=== PATIENT | female | born 1940 | race Caucasian/White ===

== ENCOUNTER → 2016-10-27 | Outpatient (CLI) | payer OTHER, MEDICARE | LOC: BHFA 10:00 | PROVIDERS: ATTEND Internal Medicine Cardiovascular Disease | DX: I34.8 Other nonrheumatic mitral valve disorders (principal) ==

== ENCOUNTER → 2016-11-07 | Outpatient (CLI) | payer OTHER, MEDICARE | LOC: BHFA 10:00 | PROVIDERS: ATTEND Internal Medicine Interventional Cardiology | DX: I48.91 Unspecified atrial fibrillation (principal); I10 Essential (primary) hypertension; Z98.890 Other specified postprocedural states; Z95.0 Presence of cardiac pacemaker ==

== ENCOUNTER → 2017-05-25 | Outpatient (CLI) | payer OTHER, MEDICARE ==
[~2017-05-25] MED LIST: IOPAMIDOL (ISOVUE-M 300) 15 ML VIAL ONE; LIDOCAINE 1% 300 MG/30 ML SDV ONE; ONDANSETRON DISINTEGRATING 4 MG TAB ONE
== END ==
LOC: FIMAGING 08:17
PROVIDERS: ATTEND Neurological Surgery
PROC: 3E0R3KZ Introduction of Other Diagnostic Substance into Spinal Canal, Percutaneous Approach (ICD-10-PCS; principal; 2017-05-25)
DX: M12.88 Other specific arthropathies, not elsewhere classified, other specified site (principal); M50.31 Other cervical disc degeneration, high cervical region; M50.321 Other cervical disc degeneration at C4-C5 level; M50.322 Other cervical disc degeneration at C5-C6 level; M50.323 Other cervical disc degeneration at C6-C7 level; M51.34 Other intervertebral disc degeneration, thoracic region; M43.12 Spondylolisthesis, cervical region; M43.14 Spondylolisthesis, thoracic region; M99.71 Connective tissue and disc stenosis of intervertebral foramina of cervical region; M99.72 Connective tissue and disc stenosis of intervertebral foramina of thoracic region; M48.02 Spinal stenosis, cervical region
CPT/HCPCS: 62302; 72126; 72240; Q9967

== ENCOUNTER → 2017-10-31 | Outpatient (CLI) | payer OTHER, MEDICARE | LOC: BHFA 10:00 | PROVIDERS: ATTEND Internal Medicine Cardiovascular Disease | DX: I10 Essential (primary) hypertension (principal); I05.9 Rheumatic mitral valve disease, unspecified ==

== ENCOUNTER → 2018-04-06 | Outpatient (CLI) | payer OTHER, MEDICARE | LOC: BHFA 15:30 | PROVIDERS: ATTEND Internal Medicine Interventional Cardiology | DX: I48.91 Unspecified atrial fibrillation (principal) ==

== ENCOUNTER 2018-04-07 23:47 | Inpatient (IN) | payer OTHER, MEDICARE ==
--- NOTE | 2018-04-07 23:59 | CPEKG ---
Heart Rate: 161 RR Interval: 373 QRSD Interval: 80 QT Interval: 288 QTC Interval: 472 P [place]: 0 QRS [place]: 54 T Wave [place]: 214 EKG Severity - ABNORMAL ECG - EKG Impression: SUPRAVENTRICULAR TACHYCARDIA EKG Impression: REPOLARIZATION ABNORMALITY, PROB RATE RELATED Electronically Signed By: Henry Hoffman 08-Apr-2018 02:00:40
[2018-04-08] MEDS: DILTIAZEM 25 MG/5 ML VIAL IVP ONE ×2 (00:26→00:49)
--- NOTE | 2018-04-08 00:27 | EDPHY ---
H & P Stated Complaint: c/o Rapid heart rate for 30 min Time Seen by Provider: 04/07/18 23:50 HPI/ROS: CHIEF COMPLAINT: Feels unwell, heart rate fast HISTORY OF PRESENT ILLNESS: This 77-year-old female who is approximately 13 years status post mitral valve replacement was notified by her jet engine mechanic this past Monday that that the evening prior, she had event where she was in a certain rhythm, ? atrial fibrillation and need becoming for checked. This is the 1st time that she has ever had a diagnosis of atrial fibrillation, at least that is what is suspected as she said she had been scheduled for cardioversion on Monday, April 09. April 03 - pacemaker picked up rhythm change April 04 - notified, seen in office, started on Coumadin, Appt for cardioversion on the . EKG performed. April 04,, and maybe = took the coumadin - though she thinks she only tok 3 doses, though started on the . Ever since Monday she has had a sense of the heart rhythm being oz the fast and somewhat irregular. However she is here tonight because she felt unwell. She notes that is not a chest discomfort nor a sense of dread or pallor or diaphoresis or sweating but a sense that something was wrong , but she is unable to further characterize it, though maybe a little short of breath as well, along with a sense of feeling unwell. In the last month she has been under quite a bit of stress as her is ill. However, she has not noted any exercise intolerance or chest discomfort or shoulder discomfort or arm discomfort her shortness of breath REVIEW OF SYSTEMS: Constitutional: No fever, no chills. Eyes: No discharge ENT: No sore throat. Cardiovascular: No chest pain, no palpitations. Respiratory: No cough, shortness of breath, or wheezing. Gastrointestinal: No nausea vomiting or diarrhea. No abdominal pain. Genitourinary: No hematuria or frequency. Musculoskeletal: No back pain. Skin: No rashes. Neurological: No headache. 10 point ROS otherwise negative Source: Patient Exam Limitations: No limitations - Personal History Tetanus Vaccine Date: WITHIN 10 YRS - Medical/Surgical History Hx Asthma: Yes Hx Chronic Respiratory Disease: No Hx Diabetes: No Hx Cardiac Disease: Yes Hx Renal Disease: No Hx Cirrhosis: No Hx Alcoholism: No Hx HIV/AIDS: No Hx Splenectomy or Spleen Trauma: No Other PMH: PACEMAKER (09/2014), 'MIGRAINES, MVR 2004, MAZE AND ATRIAL AT SAME SURGERY, ASTHMA, Left subclavian blood clot, (09/2014) - Family History Significant Family History: No pertinent family hx - Social History Smoking Status: Never smoked Alcohol Use: None Drug Use: None - Physical Exam Exam: General Appearance: Alert, no distress. Afebrile. Normal phonation. No respiratory distress. Good color, no pallor, no diaphoresis. Eyes: Pupils equal and round no pallor or injection. No icterus ENT, Mouth: Mucous membranes moist Pharynx without erythema or exudate. TM Clear. Neck: No adenopathy. Supple. No JVD. Trachea in midline. Respiratory: There are no retractions, lungs are clear to auscultation. Chest wall: Nontender to palpation. No crepitus. Cardiovascular: Regular rate and rhythm. No murmur. Abdomen: Soft and nontender, no masses, bowel sounds normal. Neurological: Ox3. No motor weakness. Sensation intact. Gait nl. Skin: Warm and dry, no rashes. Musculoskeletal: No joint swelling. Extremities: No edema. Homans sign negative. No cords. Psychiatric: Normal affect. Patient is oriented X 3. There is no agitation Constitutional: Initial Vital Signs Temperature (C) 36.6 C 04/07/18 23:52 Heart Rate 160 H 04/07/18 23:52 Respiratory Rate 20 04/07/18 23:52 Blood Pressure 140/109 H 04/07/18 23:52 O2 Sat (%) 94 04/07/18 23:52 O2 Delivery Mode Nasal Cannula O2 (L/minute) 2 Allergies/Adverse Reactions: codeine Allergy (Intermediate, Verified 05/22/17 10:34) Vomiting lorazepam [From Ativan] Allergy (Intermediate, Verified 05/22/17 10:34) Other-Enter Comments albuterol [Albuterol] Allergy (Unknown, Verified 05/22/17 10:34) Unknown morphine [Morphine] Allergy (Unknown, Verified 05/22/17 10:34) Vomiting ALL NARCOTICS Allergy (Intermediate, Uncoded 05/22/17 10:34) Home Medications: Medication Instructions Recorded Acet/Caffeine/Buta Fioricet 1 each PO DAILY PRN 09/29/14 [Fioricet (*)] Ascorbic Acid [Vitamin C 500 mg 1,000 mg PO DAILY 09/29/14 (*)] Aspirin [Aspirin 81mg (*)] 325 mg PO DAILY 09/29/14 Beclomethasone Qvar 40 [Qvar 40] 1 puffs IH BID 09/29/14 Cholecalciferol Vit D3 [Vitamin D3 1,000 units PO DAILY 09/29/14 (*)] Digoxin [Lanoxin 0.125 mg] 0.125 mg PO DAILY@1500 09/29/14 Diltiazem HCl [Diltiazem 24Hr ER] 240 mg PO DAILY 09/29/14 Fish Oil/Dha/Epa [Fish Oil 1,200 1 each PO DAILY 09/29/14 mg Fish Oil] Garlic 580 mg PO DAILY 09/29/14 Meclizine HCl [Meclizine HCl 25 mg 12.5 mg PO DAILY PRN 09/29/14 (RX,OTC)] Multivitamins [Multivitamin (*)] 1 each PO DAILY 09/29/14 Ondansetron Odt [Zofran Odt 4 mg 4 mg PO DAILY PRN 09/29/14 (*)] Sertraline HCl [Zoloft 25mg (*)] 25 mg PO Q2D 09/29/14 Ubidecarenone/Vit E Acet [Co Q-10 1 each PO DAILY 09/29/14 100 mg Softgel] Medical Decision Making - Diagnostics EKG Interpretation: EKG 1. Interpreted by me contemporaneously. This is supraventricular tachycardia, with a heart rate approaching 150-160. Mild nonspecific ST changes. EKG 2. Atrial fibrillation with occasional paced beats. Diffuse ST segment changes interpreted by me contemporaneously Imaging Results: Chest x-ray: Two view chest. Interpreted by [me, contemporaneously]. Films [viewed] by me on the PACS system. Enlarged cardiac silhouette. Normal lung martinez. No effusions, nor CHF. Mild cardiomegaly. Imaging: I viewed and interpreted images myself ED Course/Re-evaluation: EKG on arrival showed supraventricular tachycardia at a rate of approximately 160. No clear irregularity noted. Unable to access the EKG from this past . As she was scheduled for the cardioversion on Monday, 36 hr from now we discussed possibly doing a cardioversion now. However that seemed a little dog 10 to her thus we went ahead with rate control as follows: Her blood pressure is 160 systolic thus she was given a loading dose of 15 milligrams, over 2 min. While this did work, and her heart rate was in the 80s , it also causes some hypotension with a blood pressure of 90. Thus she was given a saline bolus and laid flat and her blood pressure responded nicely, to the 130 range As such she was given a 10 cc of calcium gluconate and started on the drip at 5 milligrams/minute. By then, her heart rate was up to 120. A 2nd EKG was performed shortly after the initial IV bolus. This should demonstrates atrial fibrillation with Yaw normal response rate with occasional paced beats. On the drip at 5 milligrams/minute [place] [id number] range thus and other bolus was given of 7 mg IV over 2 min Chest x-ray performed. While the cardiac silhouette is enlarged, the lung martinez are clear. No signs of failure. No pneumothorax. See interpretation by me. Laboratory evaluation include the following: Normal H&H Normal electrolytes PT INR pending - as she has just started Coumadin and the INR is pending I will forego adding any Lovenox at this time Case was discussed with Dr. Neves of the hospitalist service and the patient admitted to the PCU as an observation status, via ALS transfer. Differential Diagnosis: Differential diagnosis includes but is not limited to the following: Atrial fibrillation, ACS, myocardial infarction, pulmonary embolus, CHF, Pneumonia, bronchospasm, Asthma, anxiety, muscle strain, anemia, sepsis. Critical Care Time: I spent a total of [70] minutes of critical care time in obtaining history, performing a physical exam, bedside monitoring of interventions, collecting and interpreting tests and discussion with consultants but not including time spent performing procedures. - Data Points Laboratory Results: 04/08/18 04/08/18 04/08/18 00:50 00:43 00:00 POC Hgb 13.9 gm/dL gm/dL (12.6-16.3) POC Hct 41 % % (38-47) PT 18.1 SEC H SEC (12.0-15.0) INR 1.48 H (0.83-1.16) POC Sodium 140 mEq/L mEq/L 141 mEq/L mEq/L (135-145) (135-145) POC Potassium 3.8 mEq/L mEq/L 3.7 mEq/L mEq/L (3.3-5.0) (3.3-5.0) POC Chloride 107 mEq/L mEq/L 107.0 mEq/L mEq/L (97-110) (97-110) POC Total CO2 22 mEq/L mEq/L (22-31) POC BUN 23 mg/dL mg/dL 19 mg/dL mg/dL (7-23) (7-23) POC Creatinine 0.8 mg/dL mg/dL 0.9 mg/dL mg/dL (0.6-1.0) (0.6-1.0) POC Glucose 106 mg/dL H mg/dL 105 mg/dL H mg/dL (70-100) (70-100) POC Calcium 9.8 mg/dL mg/dL (8.5-10.4) Medications Given: Discontinued Medications Diltiazem HCl (Cardizem 25 Mg/5 Ml Vial) 10 mg IVP EDNOW ONE Stop: 04/08/18 00:06 Last Admin: 04/08/18 00:49 Dose: 10 mg Diltiazem HCl (Cardizem 25 Mg/5 Ml Vial) 7 mg IVP EDNOW ONE Stop: 04/08/18 01:12 Last Admin: 04/08/18 01:35 Dose: 7 mg Calcium Gluconate (Calcium Gluconate 1 Gm (Premix)) 50 mls @ 100 mls/hr IV ONCE ONE Stop: 04/08/18 00:57 Last Admin: 04/08/18 00:47 Dose: 50 mls Diltiazem HCl 125 mg/ Sodium (Chloride) 125 mls @ 0 mls/hr IV EDNOW ONE; Titrate PRN Reason: Protocol Stop: 04/08/18 00:31 Last Admin: 04/08/18 00:51 Dose: 125 mls Point of Care Test Results: Chemistry 04/08/18 04/08/18 00:50 00:43 POC Sodium 140 mEq/L mEq/L 141 mEq/L mEq/L (135-145) (135-145) POC Potassium 3.8 mEq/L mEq/L 3.7 mEq/L mEq/L (3.3-5.0) (3.3-5.0) POC Chloride 107 mEq/L mEq/L 107.0 mEq/L mEq/L (97-110) (97-110) POC Total CO2 22 mEq/L mEq/L (22-31) POC BUN 23 mg/dL mg/dL 19 mg/dL mg/dL (7-23) (7-23) POC Creatinine 0.8 mg/dL mg/dL 0.9 mg/dL mg/dL (0.6-1.0) (0.6-1.0) POC Glucose 106 mg/dL H mg/dL 105 mg/dL H mg/dL (70-100) (70-100) POC Calcium 9.8 mg/dL mg/dL (8.5-10.4) ISTAT H&H 04/08/18 00:50 POC Hgb 13.9 gm/dL gm/dL (12.6-16.3) POC Hct 41 % % (38-47) Departure - Departure Disposition: [facility] Inpatient Acute Clinical Impression: Fast Ventricular Response Atrial fibrillation Qualifiers: Atrial fibrillation type: unspecified Qualified Code(s): I48.91 - Unspecified atrial fibrillation Condition: Good
[2018-04-08] MEDS ORDERED: CALCIUM GLUCONATE 50 ML IV ONE (00:28)
[2018-04-08] MEDS ORDERED: DILTIAZEM 125 MG in NS 100 ML IV ONE (00:30)
[2018-04-08] MEDS ORDERED: DILTIAZEM 25 MG/5 ML VIAL IVP ONE (01:11)
[2018-04-08] MEDS ORDERED: NS 1,000 ML IV ONE (01:30)
[2018-04-08 01:37] LABS: INR 1.48 (0.83-1.16); PROTIME(PATIENT) 18.1 SEC (12.0-15.0)
[2018-04-08] MEDS ORDERED: ONDANSETRON 4 MG/2 ML VIAL IVP PRN (02:11)
[2018-04-08] MEDS ORDERED: NS 1,000 ML IV SCH (02:15)
[2018-04-08] MEDS ORDERED: DILTIAZEM 125 MG in D5W 125 ML IV SCH (03:15)
--- NOTE | 2018-04-08 05:18 | GHP ---
[f rep st] HISTORY AND PHYSICAL DATE OF ADMISSION: 04/08/2018 SOURCE: Patient provides history, appears reliable. EMR was reviewed and case discussed with ED provider. CHIEF COMPLAINT: Palpitations, fatigue. HISTORY OF PRESENT ILLNESS: This is a very pleasant 77-year-old female with past medical history significant for mitral valve replacement, history of pacer , asthma, migraine headaches, remote history of DVT status post pacer placement , who presents to the emergency department today with complaints of palpitations and fatigue. Patient was notified last week by Dr. Akins that her pacer had notified them that the patient had gone into atrial fibrillation. She, subsequently, had a followup with them. Was placed on Coumadin and has taken several doses of this. Additionally, patient is scheduled to have a cardioversion on Monday. She reports that this evening she developed increasing palpitations and fatigue. She denies any lower extremity edema. No dyspnea. No lightheadedness more than her baseline associated with headaches. She denies any focal deficits, numbness, tingling, or visual changes. The patient denies any nausea, vomiting, abdominal pain. No fevers, chills, or sweats. Patient otherwise without any other additional complaints. The patient reports that she has been under an immense amount of stress at home. Her , unfortunately, has been dealing with a glioblastoma and has not been doing well. REVIEW OF SYSTEMS: Negative except as noted above. ALLERGIES: To all narcotics and lorazepam. Patient reports that she developed significant and sudden GI upset. HOME MEDICATIONS: As per EMR. Co-Q10 one tab p.o. daily, sertraline 25 mg p.o. every other day, Zofran ODT 4 mg p.o. daily p.r.n., multivitamin 1 tab p.o. daily, meclizine 12.5 mg p.o. daily p.r.n., garlic 580 mg p.o. daily, fish oil 1200 mg p.o. daily, Diltiazem 24-hour ER 240 mg p.o. daily, digoxin 0.125 mg p.o. daily at 1500. Vitamin D3 at 1000 units p.o. daily. Qvar 1 puff inhaled b.i.d., aspirin 325 mg p.o. daily, vitamin C 1000 mg p.o. daily, and Fioricet 1 tab p.o. daily p.r.n. PAST MEDICAL HISTORY: Significant for mitral valve replacement pacer 10/04/2014 , asthma, migraine headaches, and left subclavian DVT in 09/2014 after pacer placement. PAST SURGICAL HISTORY: Significant for pacer and bilateral cataract extraction with lens placement. FAMILY HISTORY: Mother with history of pacer and heart problems. Brother with mitral valve replacement. Father with history of congestive heart failure. SOCIAL HISTORY: Patient denies any tobacco or drugs. She does drink a glass of wine on a weekly basis. She lives with her . COR STATUS: Full. PHYSICAL EXAMINATION: VITAL SIGNS: Upon arrival to the ED at [facility], blood pressure 140/109, heart rate 160, respiratory rate 20, O2 saturation 94% on room air with temperature 36.6. Current vitals: Blood pressure 127/85, heart rate 112, respiratory rate 20, O2 sat is 100% on 2 L by nasal cannula. GENERAL: No acute distress. Very pleasant, elderly appearing female who is lying quietly in bed. Her daughter is at bedside. HEAD: Normocephalic, atraumatic. EYES: Extraocular muscles are intact. Pupils equal , round, react to light bilaterally and symmetric. No scleral icterus or conjunctival injection. Lens reflex appreciated bilaterally. ENT: Mucous membranes appear slightly dry. No oropharyngeal erythema or exudates. No nasal discharge. NECK: Supple, trachea midline. CARDIOVASCULAR: Tachycardic with irregularly irregular rhythm. No murmurs, rubs, or gallops appreciated, but limited secondary to tachycardia. No chest wall tenderness to palpation. RESPIRATORY: Lungs are clear to auscultation bilaterally. No wheezes, rales, or rhonchi. Unlabored breathing. ABDOMEN: Positive bowel sounds. Soft, nontender to palpation. No rebound, guarding, or masses appreciated. : No suprapubic tenderness to palpation. No Vieira catheter in place. MUSCULOSKELETAL: Generalized deconditioning, weakness, otherwise moves all extremities while lying in bed. NEUROLOGIC: Grossly nonfocal. No facial drooping. Moves all extremities. PSYCHIATRIC: Patient does appear just slightly anxious, but she is very pleasant and cooperative. DATA REVIEWED: Laboratory studies: Point of care H and H is 13.9 and 41, PT is 18.1 and 1.48. Point of care sodium is 140, potassium 3.8, chloride is 107, CO2 is 22, BUN 23, creatinine is 0.8, glucose is 106. EKG reviewed myself showing initially supraventricular tachycardia in the 160s. No acute ST changes. Some slight ST depressions in the lateral leads. Could be rate related. QTc is 472. Repeated EKG I am not able to obtain but with telemetry monitoring shows AFib with a rate in the 110s. No acute ST changes present. Chest x-ray: Image reviewed myself, report is still pending. The patient with a biventricular pacer, right perihilar vascular prominence. Lungs otherwise clear. ASSESSMENT AND PLAN: A very pleasant 77-year-old female with history of mitral valve replacement, pacer placement, who presents to the emergency department with palpitations. 1. Atrial fibrillation with rapid ventricular response. The patient received a dose of Cardizem in the emergency department before transfer. The bolus dose did slow her heart rate but also dropped her blood pressure slightly to below 100 systolically. She was subsequently placed on a diltiazem drip, and her heart rate overall has decreased down from 160s to 110s. We will plan to continue on the Cardizem drip at this time. Cardiology can be consulted in the morning. Patient is scheduled as outpatient for a cardioversion. We will request Cardiology evaluation recommendations. The patient has been taking Coumadin. Her INR is subtherapeutic at this time. Given the patient has been on the Coumadin for several days we will plan to repeat PT/INR and Lovenox bridge. The patient is followed closely by Dr. Akins. I am unable to assess if recent echo has been ordered, so will hold off until we can ascertain additional need for echo. 2. Other medical issues, history of mitral valve replacement. 3. Pacer. 4. History of asthma without exacerbation. 5. History of migraine headaches, currently controlled. 6. Remote history of deep vein thrombosis on Coumadin already. Consider bridging tomorrow and at discharge. 7. Fluid, electrolyte, nutrition: IV fluids present. Gentle IV fluid hydration, electrolyte monitoring replacement if needed. The patient will be n.p.o. pending Cardiology evaluation. 8. Prophylaxis: Sequential compression devices, holding anticoagulation until reassessment and PT/INR tomorrow. Consideration for therapeutic dosing. 9. COR status is full. 10. Disposition: The patient admitted to observation status on the Pulmonary Care Unit floor pending further recommendations from Cardiology and followup assessments with Cardizem drip and consideration for cardioversion. /[id number]/MODL MTDD
[2018-04-08 08:13] LABS: PLATELET COUNT 216 10^3/uL (150-400)
[2018-04-08 08:19] LABS: INR 1.66 (0.83-1.16); PROTIME(PATIENT) 19.7 SEC (12.0-15.0)
[2018-04-08] MEDS ORDERED: ONDANSETRON DISINTEGRATING 4 MG TAB PO PRN (08:46)
[2018-04-08] MEDS ORDERED: MECLIZINE HCL 25 MG TAB PO PRN (08:46)
[2018-04-08] MEDS ORDERED: ACET/CAFFEINE/BUTA FIORICET 1 EACH TAB PO PRN (08:46)
[2018-04-08] MEDS: ACETAMINOPHEN 325 MG TAB PO PRN ×2 (10:06→19:24)
[2018-04-08] MEDS: CHOLECALCIFEROL VIT D3 1,000 UNITS TAB PO SCH (10:07)
[2018-04-08] MEDS: OMEGA-3 FATTY ACIDS 1,000 MG CAP PO SCH (10:07)
[2018-04-08] MEDS: ASCORBIC ACID 500 MG TAB PO SCH (10:07)
[2018-04-08] MEDS: MULTIVITAMINS 1 EACH TAB PO SCH (10:07)
--- NOTE | 2018-04-08 10:09 | ASMTCMCOM ---
CM Note CM Note Notes: 04/08/2018 Case Management Note Met w/pt. ALMAZ signed. Pt admitted for treatment of atrial fibrillation with fast ventricular response. Pt Sergio is currently living at [facility] in [facility]. Sergio is followed by [facility] hospice d/t a progressing brain tumor. Pt has 2 children. Daughter Sydney [phone] lives locally. Son Alfredo [phone] lives in [place]. Pt friend Quita Hannon [phone] was present. Pt lives independently. She is able to drive and has no difficulty preparing meals. She attends a support group through [facility] hospice. Pt reports that she is scheduled for a HAWA and cardioversion tomorrow. Case Management d/c poc: independent Case Management available if needs change. Date Signed: 04/08/2018 10:08 AM Electronically Signed By:Nahomi Lemons RN
[2018-04-08] MEDS ORDERED: ADENOSINE 6 MG/2 ML VIAL ONE (11:27)
[2018-04-08] MEDS: METOPROLOL TARTRATE 25 MG TAB PO SCH ×2 (13:25→20:19)
--- NOTE | 2018-04-08 13:29 | GCON ---
[f rep st] CONSULTATION DATE OF CONSULTATION: 04/08/2018 REFERRING PHYSICIAN: Jyoti Neves MD REASON FOR CONSULTATION: We have been asked by Dr. Neves to evaluate the patient with tachycardia. HISTORY OF PRESENT ILLNESS: The patient is a 77-year-old female with history of mitral valve repair and Maze procedure who presents with a chief complaint of palpitations. Patient was in her usual sta te of health until 04/04/2018, when she was noted to have atrial fibrillation on pacemaker monitoring . She was started on anticoagulation and scheduled for a HAWA cardioversion on 04/09/2018. On 2017, patient noted the onset of palpitations described as a rapid heartbeat. The palpitations were not associated with symptoms of syncope or presyncope. The palpitations were somewhat bothersome pro mpting her to seek further evaluation. She presented to the emergency department, where she had an E KG performed demonstrating a narrow complex tachycardia at 161 beats per minute. The tachycardia was suggestive of a supraventricular tachycardia versus a fast flutter. Patient was admitted to the [facility] and started on diltiazem drip. We were consulted to help in the further management of this pat ient. The patient has been under a significant amount of stress at home, secondary to her 's diagnos is of glioblastoma. Patient does have a history of mitral valve repair in 2004. Her most recent ech ocardiogram in October of 2017, demonstrated normal left ventricular size and systolic function with moderate mitral regurgitation and a pulmonary artery pressure 39 mmHg. This was not significantly ch anged from previous. The patient also has a history of atrial fibrillation, is status post Maze proc [facility]. Post-Maze procedure in 2008, patient did have atrial tachycardia. She was started on diltiaz em and digoxin for her rhythm management. PAST MEDICAL HISTORY: 1. Status post mitral valve repair in 2004. 2. Atrial fibrillation, status post maze procedure in 2004. 3. Atrial tachycardia managed with diltiazem and digoxin. 4. History of DVT. 5. Migraine headaches. MEDICATIONS: Please see medicine reconciliation form. ALLERGIES: Codeine, lorazepam, albuterol, and morphine. SOCIAL HISTORY: The patient has been under a fair amount of stress with her 's recent diagnos is of glioblastoma. Patient's is in the process of being transition from one assisted facili ty to a second assisted facility on the day after admission. The patient does not smoke. She consum es approximately 1 small glass of wine per week. FAMILY HISTORY: Noncontributory. REVIEW OF SYSTEMS: 10-point review of systems is negative, except as noted in HPI. PHYSICAL EXAMINATION: GENERAL: The patient is resting comfortably in bed. She does not appear to b e in acute distress. VITAL SIGNS: Temperature is afebrile. Pulse is 131, blood pressure 124/76, re spiratory rate is 20, SaO2 is 97% on 2 L nasal cannula. HEENT: Normocephalic atraumatic. Extraocul ar muscles intact. NECK: No JVD. No bruits. LUNGS: Clear to auscultation bilaterally. CARDIOVAS CULAR: Tachycardia, regular rhythm. S1, S2. A grade 2/6 holosystolic murmur is noted at the left s ternal border. ABDOMEN: Soft, nontender. Normoactive bowel sounds. No hepatosplenomegaly noted. Aorta could not be adequately palpated. SKIN: No evidence of rashes. EXTREMITIES: No lower extrem ity edema. No clubbing or cyanosis. NEURO: Patient is awake, alert, and oriented x3. LABORATORY/IMAGING: White blood cell count is 4.65, hemoglobin is 13.9, hematocrit is 40.9, platelet count is 216. INR is 1.66. Sodium 141, potassium 3.9, chloride 110, CO2 21, BUN 14, creatinine 0.7 . TSH 2.38. Digoxin level is pending at this time. EKG demonstrates a narrow complex tachycardia at 161 beats per minute suggestive of atrial tachycardi a versus atrial flutter with 2-1 conduction. Maneuvers: The patient was treated with vagal maneuvers as well as carotid sinus massage with tempor max breaking of her rhythm. The rhythm is suggestive of an atrial tachycardia. ASSESSMENT/PLAN: The patient is a 77-year-old female with return: 1. Palpitations. Patient was diagnosed with atrial fibrillation by pacemaker check on 04/07/2018. She was relatively asymptomatic with respect to her palpitations at that time; however the evening pr ior to admission, patient did note an onset of a rapid heart rate prompting her to seek further evalu ation. EKG is suggestive of an atrial tachycardia at approximately 161 beats per minute. Her rate h as decreased to 130 beats per minute with intravenous diltiazem. Will plan on adding metoprolol 12.5 mg b.i.d. to her regimen and plans for HAWA cardioversion in the a.m. if she does not convert. 2. Mitral valve repair. Patient is status post mitral valve repair in 2004. Her last echocardiogra m in October of 2017, demonstrated stable moderate mitral regurgitation with normal left ventricular size and systolic function. We will plan on evaluating the mitral valve at time of transesophageal e chocardiogram. /[id number]/MODL
[2018-04-08] MEDS: DIGOXIN 125 MCG TAB PO SCH (15:09)
--- NOTE | 2018-04-08 17:29 | HOSPPROG ---
Hospitalist Progress Note Assessment/Plan: Prolonged service and direct patient care in addition to the time spent originally on the history and physical by Dr. Jyoti Neves, [id number] with patient and her friend, at bedside, from 1:20 until 1:50 p.m., 30 min, addressing the following: -physical exam demonstrates tachycardia, irregularly irregular rhythm, no lower extremity edema, lung sounds are clear to auscultation bilaterally, abdomen is soft, non distended, alert awake oriented x3, no apparent distress, pain level 0 /10 -original EKG reviewed which demonstrates supraventricular tachycardia with T- wave inversion in lead 3, ST depression in lead 2 and laterally, current telemetry demonstrates an atrial fibrillation rhythm with a heart rate approximately 120 beats per minute -discussed with patient the current impression which has been discussed with Dr. Bud Shukla, and that is that the patient was most likely symptomatic from atrial tachycardia or supraventricular tachycardia, which was producing a rate around 160, and has responded to adenosine as well as a diltiazem drip -I recommended strategy is to administer oral metoprolol as her prefer master blocking agent, monitor for chemical cardioversion on telemetry, and if the patient does not chemically cardiovert over the next 24 hr, we will DC cardiovert her in a.m. -her beta-deonna dosage can be subsequently up titrated, as the patient has a permanent pacemaker to ensure that she does not experience subsequent pathologic bradycardia -the patient will remain on a Lovenox bridge given that the plan is for chemical or DC cardioversion, holding tomorrow morning's Lovenox dosage prior to the potential procedure, and monitoring her INR as she continues to receive Coumadin -the patient is currently chest pain-free, and we have counseled the patient that this is most likely because the rhythm producing her symptoms was either SVT or ATach, and her background atrial fibrillation is likely not the culprit of her presenting symptoms Objective: Vital Signs Temp Pulse Resp BP Pulse Ox 36.9 C 104 H 17 120/77 99 04/08/18 16:00 04/08/18 16:00 04/08/18 16:00 04/08/18 16:00 04/08/18 16:00 04/07/18 04/08/18 04/09/18 05:59 05:59 05:59 Intake Total 700 Output Total 725 Balance -25 PT 19.7 SEC (12.0-15.0) H 04/08/18 07:55 INR 1.66 (0.83-1.16) H 04/08/18 07:55 ICD10 Worksheet Patient Problems: Problems Problem Status Onset Fatigue Acute Pacemaker Acute Atrial fibrillation Acute
[2018-04-08] MEDS: WARFARIN SODIUM 5 MG TAB PO SCH (17:55)
--- NOTE | 2018-04-08 18:32 | PDMN ---
Medical Necessity Medical necessity: Change to IP, as of 04/08/18 per MD; los >2 mn for ongoing management of symptomatic atrial tachycardia/SVT; requiring further cardiac monitoring, med management, IV Diltiazem, Cardiology consult & possible HAWA cardioversion; hx MVR, AFIB on AC, pacer, DVT; per progress note & order 04/08/18
[2018-04-08] MEDS ORDERED: diphenhydrAMINE 25 MG CAP PO PRN (20:27)
[2018-04-08] MEDS ORDERED: DILTIAZEM HCL/D5W 125 ML IV SCH (20:30)
[2018-04-08] MEDS ORDERED: SERTRALINE HCL 25 MG TAB PO SCH (21:00)
[2018-04-08] MEDS ORDERED: ENOXAPARIN 60 MG/0.6 ML SYR SC SCH (21:00)
[2018-04-08] MEDS ORDERED: METOPROLOL TARTRATE 25 MG TAB PO SCH (21:00)
[2018-04-09 04:24] LABS: INR 1.78 (0.83-1.16); PROTIME(PATIENT) 20.8 SEC (12.0-15.0)
[2018-04-09] MEDS: METOPROLOL TARTRATE 25 MG TAB PO SCH (08:19)
--- NOTE | 2018-04-09 10:14 | PDHPUP ---
History & Physical Update H&P update statement: This history and physical update is based on an assessment of the patient which was completed after admission or registration (within 24 hours), but prior to the surgery/procedure. H&P update: H&P reviewed & patient examined, no change in patient's condition since H&P completed
[2018-04-09] MEDS ORDERED: ENOXAPARIN 60 MG/0.6 ML SYR SC ONE (10:30)
[2018-04-09] MEDS ORDERED: LIDOCAINE 2% 5 ML SDV ONE (11:12)
[2018-04-09] MEDS ORDERED: PROPOFOL/EMULSION 500 MG/50 ML BOTTLE IV ONE (11:12)
[2018-04-09] MEDS ORDERED: ATROPINE SULFATE 1 MG/10 ML SYR IVP ONE (11:13)
[2018-04-09] MEDS ORDERED: NS 500 ML IV ONE (11:13)
[2018-04-09] MEDS ORDERED: fentaNYL 100 MCG/2 ML INJ ONE (11:13)
[2018-04-09] MEDS ORDERED: fentaNYL 100 MCG/2 ML INJ IVP ONE (11:13)
[2018-04-09] MEDS ORDERED: MIDAZOLAM 2 MG/2 ML VIAL IVP ONE (11:13)
[2018-04-09] MEDS ORDERED: BENZOCAINE UNIT DOSE SPRAY HURRICAINE MM ONE (11:13)
--- NOTE | 2018-04-09 11:23 | PDANEPAE ---
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 JUSTINE Patient History - Allergies Allergies/Adverse Reactions: codeine Allergy (Intermediate, Verified 05/22/17 10:34) Vomiting lorazepam [From Ativan] Allergy (Intermediate, Verified 05/22/17 10:34) Other-Enter Comments albuterol [Albuterol] Allergy (Unknown, Verified 05/22/17 10:34) Unknown morphine [Morphine] Allergy (Unknown, Verified 05/22/17 10:34) Vomiting ALL NARCOTICS Allergy (Intermediate, Uncoded 05/22/17 10:34) - Home Medications Home Medications: Acet/Caffeine/Buta Fioricet [Fioricet (*)] 1 each PO DAILY PRN 09/29/14 [Last Taken Unknown] Ascorbic Acid [Vitamin C 500 mg (*)] 1,000 mg PO DAILY 09/29/14 [Last Taken 05/01] Cholecalciferol Vit D3 [Vitamin D3 (*)] 1,000 units PO DAILY 09/29/14 [Last Taken 05/22/17] Digoxin [Lanoxin 0.125 mg] 0.125 mg PO DAILY@1500 09/29/14 [Last Taken 04/07/18] Fish Oil/Dha/Epa [Fish Oil 1,200 mg Fish Oil] 1 each PO DAILY 09/29/14 [Last Taken 05/22/17] Meclizine HCl [Meclizine HCl 25 mg (RX,OTC)] 12.5 mg PO DAILY PRN 09/29/14 [ Last Taken Unknown] Multivitamins [Multivitamin (*)] 1 each PO DAILY 09/29/14 [Last Taken 05/22/17] Ondansetron Odt [Zofran Odt 4 mg (*)] 4 mg PO DAILY PRN 09/29/14 [Last Taken Unknown] Sertraline HCl [Zoloft 25mg (*)] 25 mg PO HS 09/29/14 [Last Taken 04/07/18] Diltiazem HCl [Diltiazem ER] 120 mg PO DAILY 04/08/18 [Last Taken Unknown] Warfarin Sodium [Coumadin 5MG (*)] 5 mg PO DAILY16 04/08/18 [Last Taken 04/07/18 ] - Smoking Hx Smoking Status: Never smoked - Alcohol Use Alcohol Use: None ANE Labs/Vital Signs - Labs Result Diagrams: 04/08/18 07:55 04/08/18 07:55 - Vital Signs Blood Pressure: 122/75 Heart Rate: 129 Respiratory Rate: 14 O2 Sat (%): 92 Height: 165.1 cm Weight: 62.7 kg ANE Physical Exam - Airway Neck exam: FROM Mallampati Score: Class 2 Mouth exam: normal dental/mouth exam - Pulmonary Pulmonary: no respiratory distress - Cardiovascular Cardiovascular: regular rate and rhythym - ASA Status ASA Status: III ANE Anesthesia Plan Total IV Anesthesia: Yes
--- NOTE | 2018-04-09 11:48 | PDTEE1 ---
HAWA Cardioversion Procedure Procedure: electrical cardioversion, transesophageal echo Indications: atrial fibrillation Consent: signed and in chart Anticoagulation: warfarin Procedural Details: Pads were placed in anterior-posterior position. HAWA probe was advanced and standard images obtained. There is no evidence of left atrial or left atrial appendage thrombus. Synchronized cardioversion attempt #1: 200J Results: normal sinus rhythm Conclusions: successful HAWA cardioversion (Maybe discharged home with bridging lovenox till theraputic INR acheived.) Patient Problems: Problems Problem Status Onset Fatigue Acute Pacemaker Acute Atrial fibrillation Acute
[2018-04-09] MEDS ORDERED: NALOXONE HCL 0.4 MG/ML INJ IVP PRN (12:25)
--- NOTE | 2018-04-09 12:25 | POSTANESTH ---
Post Anesthetic Evaluation Cardiovascular Status: Normal, Stable Respiratory Status: Similar to Pre-op Cond. Level of Consciousness/Mental Status: Can Participate in Eval Pain Control: Adequate, Prn Tx Ordered Nausea/Vomiting Control: Adequate, Prn Tx Ordered Complications Possibly Related to Anesthesia: None Noted
--- NOTE | 2018-04-09 12:57 | CPEKG ---
Heart Rate: 71 RR Interval: 845 P-R Interval: 200 QRSD Interval: 80 QT Interval: 396 QTC Interval: 431 QRS [place]: 51 T Wave [place]: 235 EKG Severity - ABNORMAL ECG - EKG Impression: ATRIAL PACING HAS REPLACED SVT NOTED ON PRIOR ECG EKG Impression: ATRIAL-PACED RHYTHM Electronically Signed By: Bud Lux 11-Apr-2018 07:26:12
[2018-04-09] MEDS: ACETAMINOPHEN 325 MG TAB PO PRN (13:00)
--- NOTE | 2018-04-09 13:25 | ECHO ---
[email or web address] [place] [id number] Main: [phone] Fax: Transesophageal Echocardiography Name: TOMASA LUQUE MR#: [id number] Study Date: 04/09/2018 Study Time: 11:34 AM Date of : 1940 Age: 77 year(s) Height: ( ) Weight: ( ) BSA: Gender: Female Examination: HAWA Indication: Pre Cardioversion Image Quality: Contrast: Requested by: Jyoti Neves Heart Rate: Rhythm: BP: / Procedure Staff Nutrition Director: Mayito Rosario RDCS Reading Physician: Kristopher Miller MD Requesting Provider: HAWA Exam Details Conclusions: No pericardial effusion. Left atrial appendage appears to be oversewn. There is no evidence of thrombus. Intact mitral valve repair with mild mitral regurgitation. Preserved LV systolic function. Measurements: Chambers Valvular Assessment AV/MV Valvular Assessment TV/PV Normal Normal Normal Name Value Range Name Value Range Name Value Range Additional Measurements: Findings: Left Ventricle: Normal global systolic LV function. No regional wall motion abnormality. Right Ventricle: Normal size right ventricle. There is a pacemaker lead noted in the right ventricle. Left Atrial Appendage: The left atrial appendage has been oversewn.. Mitral Valve: Mild MV prosthesis regurgitation. The mitral valve has been repaired. There is mild MR. Exam Comments: Proceeded with successful elective DC cardioversion.. l1n Patient: TOMASA LUQUE Study Date: 04/09/2018 Page 1 of 2 11:34 AM (No Signature Object) Patient: TOMASA LUQUE Study Date: 04/09/2018 Page 2 of 2 11:34 AM [id number]
[2018-04-09] MEDS ORDERED: PROMETHAZINE HCL 25 MG/ML INJ IVP PRN ×2 (14:25→15:14)
[2018-04-09] MEDS ORDERED: PROMETHAZINE HCL 25 MG TAB PO PRN ×2 (14:25→15:14)
[2018-04-09] MEDS: MULTIVITAMINS 1 EACH TAB PO SCH (14:39)
[2018-04-09] MEDS: ASCORBIC ACID 500 MG TAB PO SCH (14:39)
[2018-04-09] MEDS: CHOLECALCIFEROL VIT D3 1,000 UNITS TAB PO SCH (14:39)
[2018-04-09] MEDS: OMEGA-3 FATTY ACIDS 1,000 MG CAP PO SCH (14:39)
[2018-04-09] MEDS ORDERED: ONDANSETRON DISINTEGRATING 4 MG TAB PO PRN (15:14)
[2018-04-09] MEDS ORDERED: ONDANSETRON 4 MG/2 ML VIAL IVP PRN (15:14)
[2018-04-09] MEDS: DIGOXIN 125 MCG TAB PO SCH (15:42)
[2018-04-09] MEDS: WARFARIN SODIUM 5 MG TAB PO SCH (15:43)
[2018-04-09 17:21] VITALS: BP 104/63
--- NOTE | 2018-04-09 19:15 | PDDCSUM ---
Discharge Summary Discharge Summary: DISCHARGE SUMMARY FOLLOW-UP ITEMS: PT and INR on 04/10 with goal greater than 2, to be managed by her primary managing provider DATE OF ADMISSION: 04/07/2018 DATE OF DISCHARGE: 04/09/2018 DISCHARGE DIAGNOSES: 1. Acute supraventricular tachycardia and atrial tachycardia 2. Persistent atrial fibrillation 3. Postprocedural nausea and vomiting CONSULTATIONS: Cardiology PROCEDURES / IMAGING: Transesophageal echocardiogram and DC cardioversion CHIEF COMPLAINT: Acute palpitations SUBJECTIVE: Patient is feeling well at time of discharge, her nausea vomiting has improved PHYSICAL EXAM ON DISCHARGE: Systolic blood pressure is 120, heart rate is 70 after cardioversion, alert awake oriented x3, no abdominal tenderness on exam, bowel sounds are present, lungs are clear to auscultation bilaterally, heart rhythm is regular, occasional ectopic beat, no lower extremity edema LABS ON DISCHARGE: INR 1.78 HOSPITAL COURSE BY PROBLEM: The patient presented with acutely symptomatic supraventricular tachycardia with a heart rate in the 160s. The patient required inpatient admission for rhythm management, and after she received adenosine she demonstrated an atrial tachycardia which was subsequently managed with an IV diltiazem drip. Oral metoprolol tartrate was also introduced, and she was weaned on the diltiazem drip, intermittently changing rhythms back into her persistent atrial fibrillation, for which she had already been scheduled to receive a transesophageal echocardiogram with DC cardioversion. The patient's rhythm continued to fluctuate, intermittently going back into a symptomatic SVT greater than 140, and then returning to atrial fibrillation between 110 and 130. She received Lovenox bridging therapy as her INR was less than 2, and she continued to receive her home dosage of digoxin. Her home dosage of diltiazem oral was discontinued. She underwent DC cardioversion on 04/09 with success. She converted from her rhythms outlined above, and is in a normal sinus mechanism at discharge. She will be continued on metoprolol tartrate 12.5 mg twice daily with digoxin 125 mcg daily. She also remain on Lovenox bridging therapy as well as her Coumadin, with INR monitoring beginning tomorrow. If her INR is greater than 2, she can discontinue her Lovenox bridge. Her anticoagulation management will be managed by her outpatient managing provider. It is hypothesized that the patient had been in persistent atrial fibrillation prior to her onset of symptoms, and then her rhythm changed into a supraventricular tachycardia as well as intermittent atrial tachycardia, producing elevated rates and her presenting symptoms. The DC cardioversion seems to have cardioverted all of her aberrant rhythms back into a normal sinus mechanism. DISCHARGE MEDICATIONS: Please see official discharge medication reconciliation sheet in chart , initiate metoprolol tartrate 12.5 mg twice daily, discontinue diltiazem, Lovenox 60 mg twice daily bridge until INR greater than 2. DISCHARGE INSTRUCTIONS: Please have INR checked tomorrow, and check daily until greater than 2. TIME SPENT: Greater than 30 minutes were spent on direct patient care, as well as discharge planning and preparation.
== END 2018-04-09 19:53 | disposition home or self-care (01) | DRG 310 ==
LOC: CED 23:47 → CEDHOLD 04-08 01:16 → F2W 04-08 02:55 → OBSVTOIN 04-08 12:10
PROVIDERS: ADMIT Family Medicine; ATTEND Family Medicine
DX: I48.1 Persistent atrial fibrillation (principal); I47.1 Supraventricular tachycardia; R11.2 Nausea with vomiting, unspecified; G43.909 Migraine, unspecified, not intractable, without status migrainosus; Z95.0 Presence of cardiac pacemaker; Z95.2 Presence of prosthetic heart valve; Z79.01 Long term (current) use of anticoagulants; Z86.718 Personal history of other venous thrombosis and embolism
CPT/HCPCS: 71045-PO; 80048-PO; 82435-PO; 82565-PO; 82947-PO; 84132-PO; 84295-PO; 84520-PO; 85014-PO; 96365; 96366; J0153; J0610; J1650; J2405; J2550; J2704; J3010

== ENCOUNTER 2018-04-11 14:02 | Emergency (ER) | payer OTHER, MEDICARE ==
--- NOTE | 2018-04-11 14:10 | CPEKG ---
Heart Rate: 80 RR Interval: 750 P-R Interval: 176 QRSD Interval: 84 QT Interval: 416 QTC Interval: 480 QRS [place]: 47 T Wave [place]: 66 EKG Severity - ABNORMAL ECG - EKG Impression: ATRIAL-PACED RHYTHM EKG Impression: BORDERLINE T ABNORMALITIES, ANT-LAT LEADS Electronically Signed By: Faraz Hicks 11-Apr-2018 15:13:27
[2018-04-11] MEDS ORDERED: NS 1,000 ML IV ONE (15:09)
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
[2018-04-11 15:29] LABS: INR 2.23 (0.83-1.16); PROTIME(PATIENT) 24.7 SEC (12.0-15.0)
[2018-04-11 16:36] VITALS: BP 127/66
== END 2018-04-11 15:53 | disposition home or self-care (01) ==
LOC: CED 14:02 → EDSTATUS 14:02 → CED 15:53
DX: R00.2 Palpitations (principal); J45.909 Unspecified asthma, uncomplicated; E86.9 Volume depletion, unspecified; Z79.01 Long term (current) use of anticoagulants; Z95.0 Presence of cardiac pacemaker
CPT/HCPCS: 71046-PO; 80053-PO; 84484-PO

== ENCOUNTER → 2018-11-08 | Outpatient (CLI) | payer OTHER, MEDICARE | LOC: BHFA 10:00 | PROVIDERS: ATTEND Internal Medicine Cardiovascular Disease | DX: I48.91 Unspecified atrial fibrillation (principal); I34.0 Nonrheumatic mitral (valve) insufficiency; Z95.0 Presence of cardiac pacemaker ==

== ENCOUNTER 2018-11-09 10:14 | Day surgery (SDC) | payer OTHER, MEDICARE ==
[2018-11-09] MEDS ORDERED: METOPROLOL TARTRATE 5 MG/5 ML INJ IVP ONE ×2 (10:42→11:49)
--- NOTE | 2018-11-09 10:47 | EDPHY ---
H & P Stated Complaint: high heart rate noted by pt yesterday, 130s, fatigued Time Seen by Provider: 11/09/18 10:17 HPI/ROS: CHIEF COMPLAINT: Fast heart rate HISTORY OF PRESENT ILLNESS: This is a 78-year-old female with a known history of atrial fibrillation. She also has a history of pacemaker placement, Maze procedure, mitral valve repair. She takes metoprolol 12.5 mg twice daily, digoxin 125 mg daily in the afternoon, and Coumadin. She has taken her metoprolol dose this morning. Yesterday she noticed that her heart rate was higher than normal. She underwent echocardiogram (routine) yesterday and at that time was told she had a heart rate in the 110s. This morning she checked her heart rate at home and it was in the 130s. She feels fatigued, unusual for her after 8 hr of rest. She denies chest pain or shortness of breath. No ankle edema. She is compliant with her medications. She does not use stimulant medications and does not consume caffeine. No history of thyroid problems. REVIEW OF SYSTEMS: A ten system review of systems was performed and is negative with the exception of the items mentioned in the HPI. Past medical history: 1. Atrial fibrillation 2. Reactive airway disease 3. Migraine headaches, 3-4 per month Past surgical history: 1. Maze procedure 2. Mitral valve repair 3. Pacemaker 4. Bilateral cataracts with lens replacement Social history: She is within the past year. No tobacco or alcohol use. General Appearance: Alert. Vital signs reviewed. Heart rate 113. Blood pressure 133/95. Eyes: Pupils equal and round, no conjunctival injection, no discharge. Anicteric. ENT, Mouth: Mucous membranes are moist, no oropharyngeal erythema or edema. Neck: No lymphadenopathy, supple. No JVD. Respiratory: Lungs are clear to auscultation; no wheezes, rales, or rhonchi. Cardiovascular: Regular rate and rhythm; no murmur, rub, or gallop. Gastrointestinal: Abdomen is soft and nontender, no masses or organomegaly, bowel sounds normal. Skin: Warm and dry, no rashes on exposed skin, normal color. Back: Nontender to palpation over the thoracolumbar spine. No CVAT. Extremities: No lower extremity edema, no calf tenderness or swelling. Neurological: Alert and oriented. Moving all four extremities easily and equally. LUCILA. EOMI. Facial expressions symmetric. Tongue midline. Psychiatric: Normal affect. - Personal History Tetanus Vaccine Date: WITHIN 10 YRS - Medical/Surgical History Hx Asthma: Yes Hx Chronic Respiratory Disease: No Hx Diabetes: No Hx Cardiac Disease: Yes Hx Renal Disease: No Hx Cirrhosis: No Hx Alcoholism: No Hx HIV/AIDS: No Hx Splenectomy or Spleen Trauma: No Other PMH: PACEMAKER (09/2014), 'MIGRAINES, MVR 2004, MAZE AND mitral valve replacement AT SAME SURGERY, ASTHMA, Left subclavian blood clot, (09/2014), a- fib - Social History Smoking Status: Never smoked Constitutional: Initial Vital Signs Temperature (C) 36.6 C 11/09/18 10:22 Heart Rate 116 H 11/09/18 10:22 Respiratory Rate 18 11/09/18 10:22 Blood Pressure 136/97 H 11/09/18 10:22 O2 Sat (%) 96 11/09/18 10:22 O2 Delivery Mode Room Air Allergies/Adverse Reactions: codeine Allergy (Intermediate, Verified 11/09/18 10:22) Vomiting lorazepam [From Ativan] Allergy (Intermediate, Verified 11/09/18 10:22) Other-Enter Comments albuterol [Albuterol] Allergy (Unknown, Verified 11/09/18 10:22) Unknown morphine [Morphine] Allergy (Unknown, Verified 11/09/18 10:22) Vomiting ALL NARCOTICS Allergy (Intermediate, Uncoded 11/09/18 10:22) Home Medications: Medication Instructions Recorded Acet/Caffeine/Buta Fioricet 1 each PO DAILY PRN 09/29/14 [Fioricet (*)] Ascorbic Acid [Vitamin C 500 mg 1,000 mg PO DAILY 09/29/14 (*)] Cholecalciferol Vit D3 [Vitamin D3 1,000 units PO DAILY 09/29/14 (*)] Digoxin [Lanoxin 0.125 mg] 0.125 mg PO DAILY@1500 09/29/14 Fish Oil/Dha/Epa [Fish Oil 1,200 1 each PO DAILY 09/29/14 mg Fish Oil] Meclizine HCl [Meclizine HCl 25 mg 12.5 mg PO DAILY PRN 09/29/14 (RX,OTC)] Multivitamins [Multivitamin (*)] 1 each PO DAILY 09/29/14 Ondansetron Odt [Zofran Odt 4 mg 4 mg PO DAILY PRN 09/29/14 (*)] Sertraline HCl [Zoloft 25mg (*)] 50 mg PO HS 09/29/14 Warfarin Sodium [Coumadin 5MG (*)] 5 mg PO DAILY AT 4PM 04/08/18 Metoprolol Tartrate [Lopressor 25 12.5 mg PO BID #30 tab 04/09/18 mg (*)] Coq-10 100 mg PO BID 11/09/18 Flovent 110 MCG Hfa MDI (*) 1 puffs IH BID 11/09/18 Medical Decision Making - Diagnostics EKG Interpretation: 12 lead EKG is interpreted in [place] by emergency department physician. ED Course/Re-evaluation: Patient with atrial fibrillation, rate in the 110s. She is feeling somewhat edgy and jittery as a result. No chest pain or shortness of breath. She is mentating normally. She takes 12.5 mg of metoprolol in the morning and in the evening. She did not take an extra dose today. She was given 5 mg IV metoprolol in the emergency department. She was re-evaluated at 11:40 a.m.. Her heart rate at that time was ranging from 99-109. Blood pressure 120/90. She has had no change in her symptoms. Troponin normal. INR 3.7 today. CBC and chemistries reviewed. 2nd dose of IV metoprolol, 5 mg given. No significant change in her heart rate. I spoke with Sonny Brand, cardiology PA. He consulted with the amortization clerk on duty and it is agreed that she should be transferred to [facility] for cardioversion. It is thought that she may be in atrial flutter. Her pacemaker no also be queried in that setting. The patient is agreeable with this plan. She is discharged from the emergency department to go directly to [facility], register as an outpatient, and proceed to [facility]. Differential Diagnosis: I considered a differential diagnosis of atrial fibrillation that includes but is not limited to myocardial ischemia, valvular disease, hypertension, hyperthyroidism or other metabolic imbalance, stimulants, sick sinus syndrome, lung disease, infection, and sleep apnea. - Data Points Medications Given: Discontinued Medications Metoprolol Tartrate (Lopressor Injection) 5 mg IVP EDNOW ONE Stop: 11/09/18 10:43 Last Admin: 11/09/18 11:08 Dose: 5 mg Metoprolol Tartrate (Lopressor Injection) 5 mg IVP EDNOW ONE Stop: 11/09/18 11:50 Last Admin: 11/09/18 12:00 Dose: 5 mg Point of Care Test Results: CBC CBC Collection Date 11/09/18 CBC Collection Time 10:45 WBC 3.4 RBC 4.90 HGB 14.2 HCT 41.8 PLT 221 Neut # 2.0 Neut 59.8 LYMPH # 1.0 LYMPH 28.3 Other WBC # 0.4 Other WBC 11.9 MCV 85.3 Chemistry 11/09/18 11/09/18 10:53 10:53 POC Sodium 141 mEq/L mEq/L (135-145) POC Potassium 4.6 mEq/L mEq/L (3.3-5.0) POC Chloride 106.0 mEq/L mEq/L (97-110) POC Total CO2 21 mEq/L L mEq/L (22-31) POC BUN 15 mg/dL mg/dL (7-23) POC Creatinine 0.6 mg/dL mg/dL (0.6-1.0) POC Glucose 109 mg/dL H mg/dL (70-100) POC Calcium 9.6 mg/dL mg/dL (8.5-10.4) POC Troponin I 0.01 ng/mL ng/mL (0.00-0.08) Departure - Departure Disposition: To OP Cath/Surgery Clinical Impression: Atrial tachycardia Condition: Good
--- NOTE | 2018-11-09 12:07 | CPEKG ---
Test Reason : OPEN Blood Pressure : / mmHG Vent. Rate : 115 BPM Atrial Rate : 120 BPM P-R Int : 149 ms QRS Dur : 082 ms QT Int : 381 ms P-R-T Axes : 111 036 009 degrees QTc Int : 527 ms Atrial fibrillation Prolonged QT interval Confirmed by Quita Coleman ([id number]) on 11/09/2018 12:07:18 PM Referred By: Quita Coleman Confirmed By:Quita Coleman
[2018-11-09 14:05] VITALS: BP 140/101
[2018-11-09] MEDS ORDERED: MIDAZOLAM 2 MG/2 ML VIAL IVP ONE (14:06)
[2018-11-09] MEDS ORDERED: fentaNYL 100 MCG/2 ML INJ IVP ONE (14:06)
[2018-11-09] MEDS ORDERED: ATROPINE SULFATE 1 MG/10 ML SYR IVP ONE (14:06)
[2018-11-09] MEDS ORDERED: NS 500 ML IV ONE (14:06)
[2018-11-09] MEDS ORDERED: PROPOFOL 200 MG/20 ML VIAL ONE (15:09)
[2018-11-09] MEDS ORDERED: ONDANSETRON 4 MG/2 ML VIAL ONE (15:11)
[2018-11-09] MEDS ORDERED: NALOXONE HCL 0.4 MG/ML INJ IVP PRN (15:14)
--- NOTE | 2018-11-09 15:14 | PDANEPAE ---
ANE History of Present Illness a fib ANE Past Medical History - Cardiovascular History Hx Hypertension: No Hx Arrhythmias: Yes Hx Chest Pain: Yes Hx Coronary Artery / Peripheral Vascular Disease: No Hx CHF / Valvular Disease: Yes Hx Palpitations: Yes Cardiovascular History Comment: pacemaker 2013. mitral valve 2004. maze 2005 - Pulmonary History Hx COPD: No Hx Asthma/Reactive Airway Disease: Yes Hx Recent Upper Respiratory Infection: No Hx Oxygen in Use at Home: No Hx Sleep Apnea: Yes - Endocrine History Hx Diabetes: No Hypothyroid: No Hyperthyroid: No Obesity: no - Renal History Hx Renal Disorders: No - Liver History Hx Hepatic Disorders: No - Neurological & Psychiatric Hx Hx Neurological and Psychiatric Disorders: No - Cancer History Hx Cancer: No - Congenital Disorder History Hx Congenital Disorders: No - GI History GERD: no - Other Health History Other Health History: INR 3.1 on warfarin - Chronic Pain History Chronic Pain: Yes ANE Review of Systems Review of systems is: negative Review of Systems: ANE Patient History - Allergies Allergies/Adverse Reactions: codeine Allergy (Intermediate, Verified 11/09/18 10:22) Vomiting lorazepam [From Ativan] Allergy (Intermediate, Verified 11/09/18 10:22) Other-Enter Comments albuterol [Albuterol] Allergy (Unknown, Verified 11/09/18 10:22) Unknown morphine [Morphine] Allergy (Unknown, Verified 11/09/18 10:22) Vomiting ALL NARCOTICS Allergy (Intermediate, Uncoded 11/09/18 10:22) - Home Medications Home medications: home medication list seen and reviewed Home Medications: Acet/Caffeine/Buta Fioricet [Fioricet (*)] 1 each PO DAILY PRN 09/29/14 [Last Taken Unknown] Ascorbic Acid [Vitamin C 500 mg (*)] 1,000 mg PO DAILY 09/29/14 [Last Taken 19:00] Cholecalciferol Vit D3 [Vitamin D3 (*)] 1,000 units PO DAILY 09/29/14 [Last Taken 11/08/18 19:00] Digoxin [Lanoxin 0.125 mg] 0.125 mg PO DAILY@1500 09/29/14 [Last Taken 11/08/18 15:00] Fish Oil/Dha/Epa [Fish Oil 1,200 mg Fish Oil] 1 each PO DAILY 09/29/14 [Last Taken 11/09/18 07:30] Meclizine HCl [Meclizine HCl 25 mg (RX,OTC)] 12.5 mg PO DAILY PRN 09/29/14 [ Last Taken Unknown] Multivitamins [Multivitamin (*)] 1 each PO DAILY 09/29/14 [Last Taken 11/08/18 19:00] Ondansetron Odt [Zofran Odt 4 mg (*)] 4 mg PO DAILY PRN 09/29/14 [Last Taken Unknown] Sertraline HCl [Zoloft 25mg (*)] 50 mg PO HS 09/29/14 [Last Taken 11/08/18 21:00 ] Warfarin Sodium [Coumadin 5MG (*)] 5 mg PO DAILY16 04/08/18 [Last Taken 17:00] Coq-10 100 mg PO BID 11/09/18 [Last Taken 11/09/18 07:30] Flovent 110 MCG Hfa MDI (*) 1 puffs IH BID 11/09/18 [Last Taken 11/09/18 07:30] - NPO status NPO Since - Liquids (Date): 11/09/18 NPO Since - Liquids (Time): 12:45 NPO Since - Solids (Date): 11/09/18 NPO Since - Solids (Time): 07:45 - Smoking Hx Smoking Status: Never smoked ANE Labs/Vital Signs - Vital Signs Blood Pressure: 140/101 Heart Rate: 116 Respiratory Rate: 18 O2 Sat (%): 96 Height: 165.1 cm Weight: 63.5 kg ANE Physical Exam - Airway Neck exam: FROM Mallampati Score: Class 2 Mouth exam: normal dental/mouth exam - Pulmonary Pulmonary: no respiratory distress, clear to auscultation - Cardiovascular Cardiovascular: irregularly irregular - ASA Status ASA Status: III ANE Anesthesia Plan Anesthesia Plan: GA with mask Total IV Anesthesia: Yes
--- NOTE | 2018-11-09 15:24 | PDCARD ---
Cardioversion Procedure Procedure: electrical cardioversion Indications: atrial fibrillation Consent: signed and in chart Anticoagulation: warfarin Procedural Details: Pads were placed in anterior-posterior position. Synchronized cardioversion attempt #1: 100J Results: normal sinus rhythm Conclusions: successful cardioversion Patient Problems: Problems Problem Status Onset Atrial tachycardia Acute Fatigue Acute Pacemaker Acute
--- NOTE | 2018-11-09 15:33 | POSTANESTH ---
Post Anesthetic Evaluation Cardiovascular Status: Normal, Stable Respiratory Status: Normal, Stable Level of Consciousness/Mental Status: Can Participate in Eval Pain Control: Adequate, Prn Tx Ordered Nausea/Vomiting Control: Adequate, Prn Tx Ordered Complications Possibly Related to Anesthesia: None Noted
--- NOTE | 2018-11-09 17:00 | GHP ---
DATE OF ADMISSION: 11/09/2018 CHIEF COMPLAINT: Ongoing fatigue and elevated heart rate. HISTORY OF PRESENT ILLNESS: The patient is a 78-year-old female who is known to our practice. She is primarily followed by Dr. Miller. She has significant past cardiac history that includes sick sinus syndrome with remote PPM implantation, paroxysmal atrial fibrillation with most recent cardioversion in March of 2018, hypertension, mitral regurgitation, remote mitral repair, PFO closure and Maze procedure in August 2005, non flow limiting CAD based off of cardiac catheterization in 2004 . Patient states that she has been in her normal state of health, until 3 days ago, which she has noted she has had an elevated heart rate, with symptoms of mild fatigue with some shortness of breath. She reports she has had no chest pressure or pain. Denies of any lightheadedness, near syncope, or syncopal events. She was scheduled to see Dr. Miller on Monday, but feeling that her heart rate had worsen, she did go into [facility] Emergency Department this afternoon for further evaluation. Upon arrival, electrocardiogram was done which appeared to be a flutter 2:1. She was hemodynamically stable. IV metoprolol was given, but really had no significant change in heart rate. Dr. Coleman consulted us to discussed patient. Reviewing electrocardiogram with Dr. Walker, it was decided that she should be sent over to the [facility], to undergo cardioversion. The patient states besides fatigue symptoms, she has been significantly emotionally stressed due to recent of her . He of cancer. She reports no orthopnea, PND, edema, lightheadedness, near-syncope, or syncopal events. Reporting no symptoms suggestive of TIA or CVA. Denies of any bleeding issues, reports no recent fevers, chills, or night sweats. She was brought over to the [facility] by family friend, and hooked up to our monitor. She does state on the drive over, she had a quick twinge of chest pressure, 1/10, which dissipated within 2 seconds. PAST MEDICAL HISTORY: 1. Mitral regurgitation 2. Paroxysmal atrial fibrillation 3. PFO 4. Sick sinus syndrome with PPM implantation. 5. Non flow limiting CAD 2. Tremors. 3. Vertigo. 4. Asthma. PAST SURGICAL HISTORY: Includes mitral valve repair (32 mm Ridig annuloplasty ring), PFO closure and Maze procedure done by Dr. Winkler 09/02/2005. Cardiac catheterization done on 08/29/2005 showing non flow limiting CAD, Remote PPM implantation, PPM generator change July 16, 2014, cardioversion March of 2018. SOCIAL HISTORY: She is adopted. Her recently of cancer. She is retired. She denies any illicit drug use or alcohol use. Reports no history of alcohol or tobacco abuse. ALLERGIES: Patient allergic to codeine, Ativan, albuterol, morphine, and all narcotics. HOME MEDICATIONS: Include: Butalbital/acetaminophen/caffeine 5/325/40 mg every 4 hours as needed, not to exceed 6 tablets in 24 hours. Digoxin 125 mcg p.o. daily. Flovent 1 puff inhaled 2 times per day. Metoprolol tartrate 12.5 mg p.o. b.i.d. Sertraline 50 mg p.o. daily. Warfarin 2.5 mg p.o. daily. 4 mg daily. Coenzyme Q10 3 tablets p.o. daily. Meclizine 25 mg 3 times per day as needed. Multivitamin. Vitamin C. Vitamin D. Ascorbic acid. REVIEW OF SYSTEMS: A 10-point review of systems done on patient, all negative except as mentioned above. PHYSICAL EXAMINATION: GENERAL APPEARANCE: This short statured, elderly female , normal weight, with no signs of acute distress. VITAL SIGNS: Current blood pressure is 140/101, heart rate 116, A flutter on monitor, respirations 18; saturating 96% on room air. HEENT: Head is normocephalic. Lips and tongue are pink and moist with no signs of cyanosis. Conjunctivae pink. NECK: Trachea is midline, no JVD, no auscultated carotid bruits. RESPIRATORY: Lungs are clear to auscultation, no rhonchi, rales, or wheezing. No accessory muscle use, no intercostal muscle retraction noted. CARDIAC: Tachy rate, irregular rhythm, S1, S2, no S3, S4. +1 to 2 systolic murmur noted along left sternal border. ABDOMEN: Soft, nontender, bowel sounds x4 quadrants. No organomegaly. No palpable masses. SKIN: [place], warm, dry, no cyanosis, no clubbing, no peripheral edema. VASCULAR: +2 carotids bilateral, +2 radials bilateral, +1 dorsal pedal, and posterior tibial pulses bilateral. LABORATORY STUDIES: Laboratory studies drawn today show sodium of 141. Potassium 4.6, chloride 106, total CO2 21, BUN 15, creatinine 0.6, glucose 109, calcium 9.6, troponin of 0.01. Magnesium 2.2. Digoxin 0.8. It was also noted she had a [id number] INR drawn per Dr. Coleman. It was within the INR of greater than 3. She was noted to have an INR at [facility] at 3[facility]1 on November 07, 2018. Reviewing her INR Clinic, she has been fully anticoagulated with no drops of sub therapy in the last month. STUDIES: Electrocardiogram as mentioned above. Echocardiogram done on 2018 at [facility] noting normal LV size, no LVH, low normal LVEF at 51% with no regional wall motion abnormalities. Diastolic dysfunction is present. Normal RV size, mildly reduced RV function, LA is normal size, small left to right shunt across interatrial septum noted with color flow Doppler. RA is normal size. [id number] MR, mitral valve repair with annuloplasty ring. No significant AI, moderate TR, RVSP of 38 mm Hg, no pericardial effusion. ASSESSMENT AND PLAN: 1. Atrial flutter with rapid ventricular response with history of AFib: Patient with atrial flutter. Pacemaker evaluation by [employer] reps appears that she has been going in and out of this more frequently, with this event starting around 5 a.m. this morning. We will plan on doing cardioversion. Continue her on current dose of metoprolol and digoxin. She is fully anticoagulated warfarin therapy. INRs supratherapeutic today, being followed by warfarin Clinic. She is noted to be therapeutic or supratherapeutic over the last month. Further recommendations will come post procedure. 2. Valvular heart disease: Patient with significant history of valvular heart disease with mitral regurgitation, status post mitral valve repair. Recent echocardiogram noted [id number] MR, moderate TR. No significant change from previous echocardiogram. She is scheduled to follow up with her primary security control room officer, Dr. Miller, on Monday, to go over results. She appears to be euvolemic on physical examination. 3. PFO: Status post repair. 4. Sick sinus syndrome: Remote permanent pacemaker implantation. With plan cardioversion. We have [employer] rep here, who interrogated her device post procedure to to assure device is functioning within normal limits postprocedure. 4. Chest pain: Patient reports quick twinge of chest pain on drive over from [facility], no other chest pain since then. Currently pain-free. Atypical chest pain for cardiac ischemia. Negative troponin. No EKG changes suggesting of acute ischemia. Recent echocardiogram showing no wall motion abnormalities. Pending results of cardioversion, we will plan for her to be discharged in 1-2 hours, and follow up with her primary security control room officer, Dr. Miller on Monday as planned. /[id number]/MODL MTDD
--- NOTE | 2018-11-09 20:57 | CPEKG ---
Test Reason : OPEN Blood Pressure : / mmHG Vent. Rate : 070 BPM Atrial Rate : 070 BPM P-R Int : 181 ms QRS Dur : 093 ms QT Int : 443 ms P-R-T Axes : 090 046 004 degrees QTc Int : 479 ms Atrial-paced rhythm Diffuse T wave abnormalities Confirmed by Mindy De Los Santos ([id number]) on 11/09/2018 8:57:02 PM Referred By: Rusty Walker Confirmed By:Mindy De Los Santos
--- NOTE | 2018-11-10 22:16 | CPEKG ---
Test Reason : OPEN Blood Pressure : / mmHG Vent. Rate : 110 BPM Atrial Rate : 116 BPM P-R Int : 128 ms QRS Dur : 085 ms QT Int : 391 ms P-R-T Axes : 072 051 -15 degrees QTc Int : 530 ms A-V dual-paced complexes, A-noncapt due to AF Borderline T abnormalities, diffuse leads Prolonged QT interval Confirmed by Tanisha Rea ([id number]) on 11/10/2018 10:16:13 PM Referred By: TANISHA REA Confirmed By:Tanisha Rea
== END 2018-11-09 18:44 | disposition home or self-care (01) ==
LOC: CED 10:14 → FCATH 13:18
PROVIDERS: ATTEND Internal Medicine Cardiovascular Disease
PROC: 5A2204Z Restoration of Cardiac Rhythm, Single (ICD-10-PCS; principal; 2018-11-09)
DX: I48.91 Unspecified atrial fibrillation (principal); I47.1 Supraventricular tachycardia; R07.9 Chest pain, unspecified; I49.5 Sick sinus syndrome; I34.0 Nonrheumatic mitral (valve) insufficiency; I10 Essential (primary) hypertension; I25.10 Atherosclerotic heart disease of native coronary artery without angina pectoris; J45.909 Unspecified asthma, uncomplicated; Z79.01 Long term (current) use of anticoagulants; Z95.0 Presence of cardiac pacemaker
CPT/HCPCS: 80048-ER; 84484-ER; 96374-ER; 96376-ER; J2405; J2704

== ENCOUNTER → 2018-11-12 | Outpatient (CLI) | payer OTHER, MEDICARE | LOC: BHFA 10:15 | PROVIDERS: ATTEND Internal Medicine Interventional Cardiology | DX: I48.1 Persistent atrial fibrillation (principal); Z95.0 Presence of cardiac pacemaker ==